=== PATIENT | female | born 1955 | race Caucasian/White ===

== ENCOUNTER → 2017-09-27 | Day surgery (SDC) | payer OTHER ==
[~2017-09-27] VITALS: Ht 160 cm; Wt 49.0 kg
--- NOTE | 2017-09-27 10:50 | Operative Report ---
Operative/Inv Procedure Report Surgery Date: 09/27/17 Name of Procedure: Navigational bronchoscopy with transbronchial fine-needle aspirates, brushings, and forcep biopsy Pre-Operative Diagnosis: Right upper lobe lung mass Post-Operative Diagnosis: Same Estimated Blood Loss: scant Surgeon/Content Analyst: Kwabena Dexter MD Anesthesia: general endotracheal tube Operative/Procedure Note Note: After placement of monitoring lines and induction of general anesthesia a survey bronchoscopy was done through the endotracheal tube. The right upper lobe showed an obstruction of the apical segment with some extension of a mass into the right upper lobe lobar bronchus. The rest of the endobronchial anatomy was normal. The navigational system was then registered and gauge. The first biopsies were done his trans-needle fine aspirates of the paratracheal lymph nodes. Rapid analysis showed suspicion but not diagnostic of cancer. The second set of biopsies were done at the apical segment of the right upper lobe. Brushings and forceps biopsies were taken and sent for further evaluation. There was good hemostasis. At the end of the mediastinoscopy procedure a second survey bronchoscopy was done and was found to be some mucus and blood plugging of the posterior segmental bronchus of the right upper lobe. This was cleared and there was a dry endobronchial field with no evidence of further oozing. The patient tolerated the procedure well was brought to recovery room awake and extubated in stable condition. CC: Isacc THOMPSON,Kwabena
--- NOTE | 2017-09-27 10:52 | Operative Report ---
Operative/Inv Procedure Report Surgery Date: 09/27/17 Name of Procedure: Mediastinoscopy Pre-Operative Diagnosis: Mediastinal lymphadenopathy Post-Operative Diagnosis: Same Estimated Blood Loss: scant Surgeon/Nurse Sane: Ann Carballo MD,Javy Hernandez Anesthesia: general endotracheal tube Operative/Procedure Note Note: At the completion of the bronchoscopy the patient's neck and chest were then prepped and draped in a sterile fashion. A small incision was made above the sternal notch and carried down to pretracheal fascia. The posterior mediastinum was entered easily with blunt dissection. The mediastinoscope was advanced to the level of the maryellen. Blunt dissection of the paratracheal area disclosed the level 4 level 7 lymph nodes seen on CT scan of the chest. [employer] specimens were taken and sent for permanent histology. An intraoperative frozen section of the level 4 node showed histiocytes and suspicion of a malignant process but nothing diagnostic. Hemostasis was achieved with electrocautery with Surgicel packing that was left behind in the paratracheal area. The wound was closed in layers with deep Vicryl suture followed by running Vicryl subcuticular suture. The patient tolerated the procedure well and was brought to the recovery room awake and extubated in stable condition.
--- NOTE | 2017-09-27 11:24 | RADIOLOGY REPORT ---
EXAMINATION: XR PORTABLE CHEST CLINICAL INFORMATION: Status post navigational bronchoscopy mediastinal mass could be. COMPARISON: 09/15/2017 TECHNIQUE: Portable frontal view of the chest was obtained. FINDINGS: Cardiac leads overlie the chest. The lungs are well expanded. There is a persistent right upper lobe masslike consolidation with an air-fluid level, as seen on prior CT. The lungs are otherwise clear. No pneumothorax. The cardiomediastinal silhouette is within normal limits of size with a calcified aorta. IMPRESSION: Similar appearance of the right upper lobe masslike cavitary lesion with air-fluid level. No pneumothorax.
== END ==
LOC: STS 03:00
DX: C34.11 Malignant neoplasm of upper lobe, right bronchus or lung (principal); R59.1 Generalized enlarged lymph nodes; F17.200 Nicotine dependence, unspecified, uncomplicated; I10 Essential (primary) hypertension; R63.4 Abnormal weight loss; D50.0 Iron deficiency anemia secondary to blood loss (chronic); R04.2 Hemoptysis
CPT/HCPCS: 71045; 93005; 93010; J0690; J1885; J2250; J2405; J3490

== ENCOUNTER → 2017-12-09 | Day surgery (SDC) | payer OTHER ==
[2017-12-09 07:43] LABS: ABSOLUTE BASOPHIL COUNT 0 /CUMM (0.0-0.2); ABSOLUTE EOSINOPHIL COUNT 0.1 /CUMM (0.0-0.7); ABSOLUTE LYMPH COUNT 1.6 /CUMM (1.2-3.4); ABSOLUTE MONOCYTE COUNT 0.3 /CUMM (0.10-0.60); BASOPHIL % 0.2 % (0.0-2.0); EOSINOPHIL % 1.7 % (0-5); GRANULOCYTE % 60.5 % (42.2-75.2); HEMATOCRIT 31.7 % (37-47); MEAN CORPUSCULAR HGB 30.3 PG (27.0-31.0); MEAN CORPUSCULAR HGB CONC 33.5 G/DL (33.0-37.0); MEAN CORPUSCULAR VOLUME 90.4 FL (81.0-99.0); MEAN PLATELET VOLUME 6.4 FL (7.4-10.4); PLATELET COUNT 259 /CUMM (130-400); RBC DISTRIBUTION WIDTH 20.1 % (11.5-14.5); RED BLOOD CELL CT 3.51 /CUMM (4.20-5.40)
--- NOTE | 2017-12-09 10:52 | Operative Report ---
Operative/Inv Procedure Report Surgery Date: 12/09/17 Name of Procedure: Fluoroscopic guided tunneled insertion of Port-A-Cath via right subclavian vein Pre-Operative Diagnosis: Lung cancer Post-Operative Diagnosis: Same Estimated Blood Loss: scant Surgeon/[employer] Certified Network Professional: Yvrose THOMPSON,Gilberto Rachel Anesthesia: local monitored anesthesi Operative/Procedure Note Note: With the patient supine on the OR table, right arm tucked, head not turned, after induction of MAC sedation, the patient's right subclavian area, including the shoulder neck and contralateral chest, were prepped and draped in the usual sterile fashion. After injecting local anesthetic in the right infraclavicular area, skin, subcutaneous to the clavicle, and inferiorly where the pocket will be, the patient was repositioned to Trendelenburg. Putting your right index finger on the sternal notch and thumb pressing down lateral to the curve of the clavicle, I made a puncture through the skin with the 15 blade scalpel next to thumb. Then along that line towards the tip of your finger, advance a large- bore needle, bevel towards the feet, on a slip tip 10 mL syringe barrel flat against the deltoid, advancing to bone and then "walking" it down just under the clavicle keeping the needle flat as possible, while maintaining vacuum with the plunger, accessing the subclavian venous blood, then replacing the syringe with a wire, sliding in with minimum resistance, confirming the position with the C- arm fluoroscope, making sure the wire is traveling down along the cava towards the right side of the heart and not up or across, and no ectopy. Next I secured the wire to the drape, measured (approximately 21 cm), cut and attached the catheter to the port. Approximately 3-4 cm inferior to the stick site a 2-1/2 cm long skin incision was made with a 15 blade scalpel along Langers lines. It was deepened with cautery and a space was developed inferiorly under the subcutaneous layer. The Port-A-Cath was laid in there and secured in [address] with 2-0 Prolene through the holes in the port, the sutures were kept loose on snaps at this point. Next the catheter was tunneled up subcutaneously with a snap and brought out through the stick site next to the wire. Then the dilator only, was passed over the wire until you could feel it slide under the clavicle, then removed, then re-advanced this time with the peel-away sheath over it, while advancing simultaneously pull the dilator out and advance the sheath, eventually pulling out the dilator and wire completely. Then the catheter was put into the sheath as far as it'll go then while holding that knuckle down with [employer], gently peel-away the sheath with your inside sales assistant. Now the correct position of the catheter was confirmed with the fluoroscope, using a Brandon needle and heparinized saline solution, the catheter was first aspirated then flushed with approximately 3 mL's, with minimal resistance. The patient was repositioned to neutral, after tying down the 2 Prolenes, the larger incision was closed in layers, 3-0 Vicryl deep and 4-0 subcuticular Monocryl for the skin, and one subcuticular Monocryl for the stick site. Both areas were covered with Mastisol Steri-Strips Telfa and Tegaderm. Chest x-ray was ordered to be done in the recovery room. Lap and sponge counts were correct. Wound expectancy was clean, IV fluids crystalloid, complications none, patient tolerated the procedure well was awakened and returned to the recovery room in satisfactory condition.
--- NOTE | 2017-12-09 11:47 | RADIOLOGY REPORT ---
EXAMINATION: XR PORTABLE CHEST CLINICAL INFORMATION: Port-A-Cath insertion COMPARISON: CXR from 10/06/2017 TECHNIQUE: Portable frontal view of the chest was obtained. FINDINGS: There is a right chest wall medication port with subclavian venous catheter extending into the distal superior vena cava. Lungs are well expanded. Cavitary lesion of the right upper lobe currently measures approximately 4.3 x 4.6 cm (compared to 6 x 7 cm on 10/06/2017). The air-fluid level within the cavitary lesion has resolved. Also, the thickness of the wall appears decreased. No acute pulmonary findings. No pneumothorax or pleural effusion. Cardiac silhouette remains normal in size. The visualized bones are intact. IMPRESSION: - The Port-A-Cath is in satisfactory position. No pneumothorax. - The cavitary lesion of the right upper lobe has decreased in size compared to 10/06/2017.
--- NOTE | 2017-12-09 15:54 | RADIOLOGY REPORT ---
PROCEDURE: FL PORTACATH INSERTION IN THE OR FINDINGS/IMPRESSION: Fluoroscopy was provided in the OR for Dr. Frances during Port-A-Cath insertion. Fluoroscopy time was 1 second. A single image is submitted that demonstrates a right chest wall port with its tip at the SVC/RA junction.
== END ==
LOC: STS 01:35
PROVIDERS: Surgery
DX: C34.91 Malignant neoplasm of unspecified part of right bronchus or lung (principal); F17.210 Nicotine dependence, cigarettes, uncomplicated; I10 Essential (primary) hypertension
CPT/HCPCS: 36415; 71045; 76000; C1751; J0690; J1644; J2001; J2250